=== PATIENT | female | born 1980 | race Caucasian/White ===

== ENCOUNTER 2017-07-24 12:23 | Emergency (ER) | END 2017-07-24 15:00 | disposition home or self-care (01) ==

== ENCOUNTER 2018-09-21 08:51 | Emergency (ER) | payer MEDICAID ==
[~2018-09-21] VITALS: Ht 157.5 cm; Wt 72.0 kg
[~2018-09-21 08:51] MED LIST: IBUP-1542 PO; METH750T93 PO; PREN1TAB49
[2018-09-21 08:54] VITALS: BP 147/84; PULSE 66; RESP 16; Ht 157.5 cm; Wt 72.0 kg
[2018-09-21] MEDS ORDERED: IBUP-1542 PO (11:02)
[2018-09-21] MEDS ORDERED: AZIT250T PO (11:02)
--- NOTE | 2018-09-21 11:10 | ERD ---
ER Documentation Chief Complaint Chief Complaint pt is bib self with c/o headache and pressure to eyes and ears x4days HPI 37-year-old man is speaking female with no reported past medical surgical history who presents with complaint of ear pain, headache, eye pressure over the past 4 to 5 days. Describes intermittent frontal headache without blurry vision or any other red flag symptoms. Has had a right ear pain as well as ringing with clear fluid drainage over the past couple of days. She otherwise denies recent illness, fever, cough, sore throat, rhinorrhea, shortness of breath, dyspnea, mucoid discharge from the ear or any other concerning symptoms. Reports allergy to penicillin only with itching and rash. She had a time examination nontoxic-appearing. ROS All systems reviewed and are negative except as per history of present illness. Medications Home Meds Active Scripts Ibuprofen* (Motrin*) 600 Mg Tab, 600 MG PO Q6, #30 TAB Prov:PADDY HARRINGTONC 09/21/18 Azithromycin* (Zithromax*) 250 Mg Tablet, 250 MG PO .ZPACK DIRECTED, #6 TAB TAKE 500 MG (2 TABS) THE FIRST DAY THEN 250 MG (1 TAB) DAYS 2-5 Prov:PADDY HARRINGTONC 09/21/18 Methocarbamol* (Robaxin*) 750 Mg Tablet, 750 MG PO QID, #20 TAB Prov:KHALIF MORELOS-C 18 Ibuprofen* (Motrin*) 600 Mg Tab, 600 MG PO Q6H PRN for PAIN AND OR ELEVATED TEMP, #30 TAB Prov:KHALIF MORELOSC 07/24/17 Reported Medications Vits W-Ca,Fe,Fa(<1MG) () 1 Tab Tablet 02/09/10 Allergies Allergies: Coded Allergies: Penicillins (Verified Allergy, Mild, 05/10/11) PMhx/Soc History of Surgery: Yes () Anesthesia Reaction: No Hx Neurological Disorder: No Hx Respiratory Disorders: No Hx Cardiac Disorders: No Hx Psychiatric Problems: No Hx Miscellaneous Medical Probl: No Hx Alcohol Use: No Hx Substance Use: No Hx Tobacco Use: No Smoking Status: Never smoker FmHx Family History: No diabetes, No coronary disease, No other Physical Exam Vitals Vital Signs Date Temp Pulse Resp B/P (MAP) Pulse Ox O2 O2 Flow FiO2 Time Delivery Rate 09/21/18 98.9 66 16 147/84 98 08:54 (105) Physical Exam I have reviewed the triage vital signs. Const: Well nourished, well developed, appears stated age Eyes: PERRL, no conjunctival injection HENT: NCAT, Neck supple without meningismus , right ear with erythema and mild swelling, no discharge no exudate noted, eardrum intact, no palpation tenderness to sinuses of head and neck CV: RRR, Warm, well-perfused extremities RESP: CTAB, Unlabored respiratory effort GI: soft, non-tender, non-distended, no masses MSK: No gross deformities appreciated Skin: Warm, dry. No rashes Neuro: grossly non focal Psych: Appropriate mood and affect. Procedures/MDM 37-year-old female who presents with primary complaint of right ear pain. Given exam symptoms likely secondary to acute otitis media. I have low suspicion for eardrum perforation given intact membrane. No overt evidence of mastoiditis or malignant otitis externa. Low suspicion for intracranial extension. Pt non-toxic appearing, tolerating PO. Will discharge home with Z-Shashi and appropriate pain medication. Return precautions explained in detail to patient. to follow- up with PMD. DISPOSITION PLAN: We discussed follow up with the patient's primary care doctor within 24 to 48 hours. Patient counseled regarding my diagnostic impression and care plan. Prior to discharge all questions answered. Pt agrees with treatment plan and understands strict return precautions. Precautionary instructions provided including instructions to return to the ER if not improving or for any worsening or changing symptoms or concerns. Disclaimer: Inadvertent spelling and grammatical errors are likely due to EHR/dictation software use and do not reflect on the overall quality of patient care. Also, please note that the electronic time recorded on this note does not necessarily reflect the actual time of the patient encounter. Departure Diagnosis: Primary Impression: Right ear pain Condition: Stable Patient Instructions: Otitis Media, Abx Tx (Adult) Referrals: COMM[facility] CLIN[facility] YOU HAVE RECEIVED A MEDICAL SCREENING EXAM AND THE RESULTS INDICATE THAT YOU DO NOT HAVE A CONDITION THAT REQUIRES URGENT TREATMENT IN THE EMERGENCY DEPARTMENT. FURTHER EVALUATION AND TREATMENT OF YOUR CONDITION CAN WAIT UNTIL YOU ARE SEEN IN YOUR DOCTORS OFFICE WITHIN THE NEXT 1-2 DAYS. IT IS YOUR RESPONSIBILITY TO MAKE AN APPOINTMENT FOR FOLOW-UP CARE. IF YOU HAVE A PRIMARY DOCTOR --you should call your primary doctor and schedule an appointment IF YOU DO NOT HAVE A PRIMARY DOCTOR YOU CAN CALL OUR PHYSICIAN REFERRAL HOTLINE AT IF YOU CAN NOT AFFORD TO SEE A PHYSICIAN YOU CAN CHOSE FROM THE FOLLOWING [facility] [address] [facility] [address] [facility] [facility] [address] [facility] [facility] [address] [facility] [facility] [address] [facility]. [facility] [address] Additional Instructions: Call your primary care doctor TOMORROW for an appointment during the next 2-3 days.See the doctor sooner or return here if your condition worsens before your appointment time. PADDY HARRINGTON PA-C September 21, 2018 11:10
== END 2018-09-21 11:24 | disposition home or self-care (01) ==
LOC: FTE 08:51
DX: H92.01 Otalgia, right ear (principal)
CPT/HCPCS: 99283